=== PATIENT | female | born 1955 | race American Indian/Alaskan Native ===

== ENCOUNTER 2019-03-10 07:08 | Day surgery (SDC) | payer OTHER ==
[2019-03-10] MEDS ORDERED: PROPOFOL 200 MG/20 ML VIAL IV ONE ×2 (07:29)
[2019-03-10] MEDS ORDERED: WATER FOR IRRIG STERILE 250 ML BOTTLE IR ONE (07:41)
[2019-03-10] MEDS ORDERED: WATER FOR IRRIG STERILE 1,000 ML BOTTLE ONE (07:53)
[2019-03-10] MEDS ORDERED: LIDOCAINE MPF (2%) 20 MG/1 ML VIAL 5 ML ONE (08:00)
[2019-03-10] MEDS ORDERED: SODIUM CHLORIDE 0.9% 1000 ML 1,000 ML IV SCH (08:00)
--- NOTE | 2019-03-10 08:10 | Anesthesia Consultation ---
Anesthesia Consult and Med Hx Date of service: 03/10/19 - Airway Anesthetic Teeth Evaluation: Bridges, Dentures ROM Head & Neck: Adequate Mental/Hyoid Distance: Adequate Mallampati Class: Class I Intubation Access Assessment: Probably Good - Pulmonary Exam CTA: Yes - Cardiac Exam Cardiac Exam: RRR - Pre-Operative Health Status ASA Pre-Surgery Classification: ASA2 Proposed Anesthetic Plan: MAC - Pulmonary Hx Respiratory Symptoms: No - Cardiovascular System Hx Hypertension: Yes - Central Nervous System Hx Neuromuscular Disorder: No Hx Psychiatric Problems: No - Endocrine Hx Renal Disease: No - Other Systems Hx Alcohol Use: Yes (Occasionally) Hx Substance Use: No - Additional Comments Anesthesia Medical History Comments: Patient denied previous anesthesia complications.
--- NOTE | 2019-03-10 08:11 | Anesthesia Day of Surgery ---
Anesthesia Day of Surgery - Day of Surgery Patient Examined: Yes Patient H&P Reviewed: Yes Patient is NPO: Yes
--- NOTE | 2019-03-10 08:44 | Procedure Note ---
Date of procedure: 03/10/19 Pre-op diagnosis: Colon Polyp Screening Post-op diagnosis: other (Multiple (3) Rectal Polyps (removed by cold biopsy)/Mild to Moderate Internal Hemorrhoids) Procedure: Colonoscopy with Cold Biopsy Anesthesia: MAC Surgeon: TRELL ELDRIDGE Estimated blood loss: minimal Pathology: list Specimen disposition: to lab Condition: stable Disposition: same day (Avoid aspirin and NSAID for 4 days, otherwise resumehome medication.)
[2019-03-10 09:03] VITALS: BP 130/70
--- NOTE | 2019-03-10 09:13 | Operative Report ---
PROCEDURE: Colonoscopy. INDICATIONS: A 63-year-old -[place] female who gives no family history of any cancer, had a colonoscopy done more than 10 years ago, did not have any polyps at that time, had a repeat colonoscopy done as part of colon polyp screening. Procedure was done. She has a prior history of a hysterectomy. DESCRIPTION OF PROCEDURE: The procedure was done after getting informed consent with MAC anesthesia. Initial rectal exam was unremarkable. Instrument was passed through the rectum onto the cecum, which was identified with ileocecal valve and the appendiceal orifice. Visualization was fair. The cecum was examined in the retroverted view. No additional pathology was noted. Cecum, ascending colon, transverse colon, descending colon, and sigmoid showed normal mucosa. There were 3 small polyps noted in the rectum that were removed by cold biopsy and the rectum showed [id number] internal hemorrhoid on the retroverted view. ASSESSMENT: Colon polyp screening, multiple small rectal polyps, [id number] internal hemorrhoids. No diverticular disease noted. There was minimal bleeding from the biopsy sites. No complications associated with the procedure. Procedure was done in the GI lab with assistance of the GI lab team, which included RN, Patricia Shankar and with the assistance of a Amy crowell and also the assistance of anesthesia. The patient will be asked to follow up in the office in 1-2 weeks' time and to resume previous medications. JOB# [id number] GADIEL/CHERELLE
--- NOTE | 2019-03-10 15:03 | Post Anesthesia Evaluation ---
- Post Anesthesia Evaluation Patient Participated: Yes Airway Patent: Yes Stable Respiratory Function: Yes Nausea/Vomiting: No Temp > 96.8F: Yes Pain Manageable: Yes Adequeate Hydration: Yes Anesthesia Complications: No Block Receding Appropriately: Not Applicable Patient on Ventilator: No
== END 2019-03-10 07:09 | disposition home or self-care (01) ==
LOC: GIO 07:08
DX: Z12.11 Encounter for screening for malignant neoplasm of colon (principal); K62.1 Rectal polyp; K64.8 Other hemorrhoids; I10 Essential (primary) hypertension; Z90.710 Acquired absence of both cervix and uterus; Z72.89 Other problems related to lifestyle; Z98.890 Other specified postprocedural states; Z88.8 Allergy status to other drugs, medicaments and biological substances
CPT/HCPCS: 45380; 88305; J2704; J7030